=== PATIENT | female | born 1950 | race Caucasian/White ===

== ENCOUNTER 2024-02-24 14:01 | Inpatient (IN) | payer MEDICARE, OTHER ==
[~2024-02-24] VITALS: Ht 157.5 cm; Wt 82.5 kg
[2024-02-24 14:47] LABS: HEMATOCRIT 31.8 % (36.0-47.0); HEMOGLOBIN 9.9 g/dl (12.0-15.5); MEAN CORPUSCULAR HGB CONC 31.1 g/dl (32.0-36.5); MEAN CORPUSCULAR VOLUME 90.1 fl (80.0-96.0); PLATELET COUNT, AUTOMATED 263 10^3/uL (150-450); RED BLOOD COUNT 3.53 10^6/uL (4.00-5.40); WHITE BLOOD COUNT 11.3 10^3/uL (4.0-10.0)
[2024-02-24 15:09] LABS: LYMPHOCYTES 7 % (16-44); MONOCYTES 14 % (0-5); NEUTROPHILS 76 % (28-66); PLATELET ESTIMATE NORMAL (NORMAL)
[2024-02-24 15:12] LABS: ALBUMIN 2.4 G/DL (3.2-5.2); BILIRUBIN,DIRECT 0.2 MG/DL (<0.4); BILIRUBIN,TOTAL 0.4 MG/DL (0.3-1.2); CALCIUM LEVEL 8.7 MG/DL (8.3-10.6); CREATININE FOR GFR 1.05 MG/DL (0.55-1.30); GLOMERULAR FILTRATION RATE 54.8 (>39); POTASSIUM SERUM 5.3 MMOL/L (3.5-5.1); TOTAL PROTEIN 6.1 G/DL (5.7-8.2)
[2024-02-24] MEDS ORDERED: dexAMETHasone 20MG/5ML VIAL IV ONE (15:15)
[2024-02-24] MEDS: IPRATROPIUM 0.5MG/ALBUTEROL 2.5MG INH SOL UD 3ML (DUONEB) NEB SCH (15:46)
[2024-02-24] MEDS: DOXYCYCLINE HYCLATE 100MG TABLET PO ONE (18:54)
[2024-02-24] MEDS: cefTRIAXone SOD 1 GM in DEXTROSE 5% (D5W) ADV/MINI-BAG 50 ML IV ONE (18:55)
[2024-02-24] MEDS ORDERED: GLIP5TAB20 PO (21:32)
[2024-02-24] MEDS ORDERED: GNP250TA9 PO (21:32)
[2024-02-24] MEDS ORDERED: AMLO1TAB24 PO (21:32)
[2024-02-24] MEDS ORDERED: PRES10CA2 PO (21:32)
[2024-02-24] MEDS ORDERED: ROSU5TAB49 PO (21:32)
[2024-02-24] MEDS ORDERED: LOSA50TA28 PO (21:32)
[2024-02-24] MEDS ORDERED: HOME MED LIST COMPLETE! XX SCH (21:35)
[2024-02-24] MEDS ORDERED: ACETAMINOPHEN 325 MG TAB PO PRN (21:40)
[2024-02-24] MEDS ORDERED: GLUCAGON INJ 1MG VIAL SC PRN (21:40)
[2024-02-24] MEDS ORDERED: GLUCOSE 4 GM CHEW PO PRN (21:40)
[2024-02-24] MEDS ORDERED: DEXTROSE 50% 50ML SYRINGE IV PRN (21:40)
[2024-02-24] MEDS ORDERED: MOM 30ML SUSPENSION UDC PO PRN (21:40)
[2024-02-24] MEDS: LEVALBUTEROL 1.25MG 0.5ML CONCENTRATE NEB INH SCH (22:52)
[2024-02-25] MEDS: guaiFENesin ER TABLET 600 MG TAB PO SCH (00:16)
[2024-02-25] MEDS: AZITHROMYCIN 250MG TABLET PO SCH (00:16)
[2024-02-25 04:00] VITALS: BP 137/68; TEMP 97.2; O2SAT 97
[2024-02-25 05:14] LABS: BASO % 0.3 % (0.0-1.0); HEMATOCRIT 29.6 % (36.0-47.0); HEMOGLOBIN 9.2 g/dl (12.0-15.5); LYMPH # 0.5 10^3/uL (1.5-5.0); LYMPH % 4.7 % (24.0-44.0); MEAN CORPUSCULAR HEMOGLOBIN 27.6 pg (27.0-33.0); MEAN CORPUSCULAR HGB CONC 31.1 g/dl (32.0-36.5); MEAN CORPUSCULAR VOLUME 88.9 fl (80.0-96.0); MONO # 0.5 10^3/uL (0.0-0.8); MONO % 4.6 % (2.0-8.0); NEUTROPHILS # 9.4 10^3/uL (1.5-8.5); NEUTROPHILS % 84.7 % (36.0-66.0); PLATELET COUNT, AUTOMATED 255 10^3/uL (150-450); RED BLOOD COUNT 3.33 10^6/uL (4.00-5.40); WHITE BLOOD COUNT 11.1 10^3/uL (4.0-10.0)
[2024-02-25 06:01] LABS: ALBUMIN 2.3 G/DL (3.2-5.2); ALKALINE PHOSPHATASE 71 U/L (35-104); ALT/SGPT 17 U/L (7.0-40); AST/SGOT < 8 U/L (<34); BILIRUBIN,TOTAL 0.4 MG/DL (0.3-1.2); BLOOD UREA NITROGEN 48 MG/DL (9-23); CARBON DIOXIDE LEVEL 27 MMOL/L (20-31); CHLORIDE LEVEL 100 MMOL/L (98-107); CREATININE FOR GFR 1.12 MG/DL (0.55-1.30); GLOMERULAR FILTRATION RATE 50.9 (>39); GLUCOSE, FASTING 420 MG/DL (74-106); POTASSIUM SERUM 5.2 MMOL/L (3.5-5.1); SODIUM LEVEL 136 MMOL/L (136-145); TOTAL PROTEIN 5.9 G/DL (5.7-8.2)
[2024-02-25] MEDS: INSULIN LISPRO (NovoLOG) PER UNIT SC SCH ×2 (06:32→20:43)
[2024-02-25] MEDS: IPRATROPIUM 0.5MG/ALBUTEROL 2.5MG INH SOL UD 3ML (DUONEB) NEB SCH (08:54)
[2024-02-25] MEDS: ENOXAPARIN 40MG/0.4ML SYRINGE (J1650 PER 10MG) SC SCH (09:35)
[2024-02-25] MEDS: ROSUVASTATIN 10 MG TAB (CRESTOR) PO SCH (09:39)
[2024-02-25] MEDS: LOSARTAN 50MG TABLET PO SCH (09:40)
[2024-02-25] MEDS: amLODIPine 5 MG TAB PO SCH (09:41)
[2024-02-25] MEDS ORDERED: PILL CUTTER 1 EACH XX ONE (09:43)
[2024-02-25] MEDS: DOXYCYCLINE HYCLATE 100MG TABLET PO SCH (09:46)
[2024-02-25 12:00] VITALS: BP 158/51; TEMP 97.9; O2SAT 94
[2024-02-25 12:15] LABS: AMORPHOUS SEDIMENT SMALL (NEGATIVE); APPEARANCE, URINE HAZY (CLEAR); BACTERIA, URINE AUTO 1+ (NEGATIVE); BILIRUBIN, URINE AUTO NEGATIVE (NEGATIVE); BLOOD, URINE BLOOD NEGATIVE (NEGATIVE); COLOR, URINE YELLOW (YELLOW); GLUCOSE, URINE (UA) AUTO 1+ mg/dL (NEGATIVE); GRANULAR CAST, URINE AUTO 1 /LPF; KETONE, URINE AUTO NEGATIVE (NEGATIVE); LEUKOCYTE ESTERASE, URINE AUTO NEGATIVE (NEGATIVE); MUCUS, URINE SMALL (NEGATIVE); NITRITE, URINE AUTO NEGATIVE (NEGATIVE); PROTEIN, URINE AUTO 1+ mg/dL (NEGATIVE); RBC, URINE AUTO 1 /HPF (0-3); SPECIFIC GRAVITY URINE AUTO 1.011 (1.002-1.035); SQUAMOUS EPITHELIAL CELL UR AU 0 /HPF (0-6); UROBILINOGEN, URINE AUTO 0.2 mg/dL (0.0-2.0); WBC, URINE AUTO 7 /HPF (0-3)
[2024-02-25 14:47] LABS: CALCIUM LEVEL 9.3 MG/DL (8.3-10.6); CREATININE FOR GFR 1.13 MG/DL (0.55-1.30); GLOMERULAR FILTRATION RATE 50.4 (>39); POTASSIUM SERUM 4.7 MMOL/L (3.5-5.1)
[2024-02-25 14:48] LABS: PERCENT SATURATION 16.6 % (13.2-45.0)
[2024-02-25] MEDS: cefTRIAXone SOD 1 GM in DEXTROSE 5% (D5W) ADV/MINI-BAG 50 ML IV SCH (17:14)
[2024-02-25 20:28] VITALS: BP 129/50; TEMP 97.9; O2SAT 94
[2024-02-25 23:01] VITALS: O2SAT 93
[2024-02-26] VITALS (9 sets, daily range): BP systolic 120–144; BP diastolic 52–67; TEMP 97–97.7; O2SAT 88–95
[2024-02-26 10:29] LABS: BASO % 0.2 % (0.0-1.0); EOS # 0.1 10^3/uL (0.0-0.5); EOS % 0.6 % (0.0-3.0); HEMATOCRIT 31.4 % (36.0-47.0); HEMOGLOBIN 9.6 g/dl (12.0-15.5); LYMPH # 1.3 10^3/uL (1.5-5.0); LYMPH % 9.6 % (24.0-44.0); MEAN CORPUSCULAR HEMOGLOBIN 28.1 pg (27.0-33.0); MEAN CORPUSCULAR HGB CONC 30.6 g/dl (32.0-36.5); MEAN CORPUSCULAR VOLUME 91.8 fl (80.0-96.0); MONO # 0.6 10^3/uL (0.0-0.8); MONO % 4.3 % (2.0-8.0); NEUTROPHILS # 10.6 10^3/uL (1.5-8.5); NEUTROPHILS % 80.4 % (36.0-66.0); PLATELET COUNT, AUTOMATED 270 10^3/uL (150-450); RED BLOOD COUNT 3.42 10^6/uL (4.00-5.40); WHITE BLOOD COUNT 13.1 10^3/uL (4.0-10.0)
[2024-02-26 11:10] LABS: CALCIUM LEVEL 8.9 MG/DL (8.3-10.6); CREATININE FOR GFR 1.33 MG/DL (0.55-1.30); GLOMERULAR FILTRATION RATE 41.7 (>39); POTASSIUM SERUM 5.4 MMOL/L (3.5-5.1)
[2024-02-27 04:00] VITALS: BP 122/51; TEMP 97.3; O2SAT 95
[2024-02-27 06:07] LABS: HEMATOCRIT 29.7 % (36.0-47.0); MEAN CORPUSCULAR HEMOGLOBIN 28.1 pg (27.0-33.0); MEAN CORPUSCULAR HGB CONC 30.3 g/dl (32.0-36.5); MEAN CORPUSCULAR VOLUME 92.8 fl (80.0-96.0); PLATELET COUNT, AUTOMATED 225 10^3/uL (150-450); WHITE BLOOD COUNT 11.5 10^3/uL (4.0-10.0)
[2024-02-27 06:33] LABS: CALCIUM LEVEL 8.7 MG/DL (8.3-10.6); CREATININE FOR GFR 1.23 MG/DL (0.55-1.30); GLOMERULAR FILTRATION RATE 45.7 (>39); POTASSIUM SERUM 5.2 MMOL/L (3.5-5.1)
[2024-02-27 07:54] VITALS: O2SAT 94
[2024-02-27] MEDS: LEVEMIR (INSULIN DETEMIR) 1 UNITS/0.01ML SC SCH (08:44)
[2024-02-27 08:47] VITALS: BP 143/81
[2024-02-27 09:16] LABS: PROCALCITONIN 0.14 ng/ml
[2024-02-27] MEDS: glipiZIDE (GLUCOTROL) 5 MG TAB PO SCH (09:32)
[2024-02-27 09:45] LABS: FOLATE 11.22 NG/ML (>5.4)
[2024-02-27 09:48] LABS: HEMOGLOBIN A1c 6.8 % (4.0-6.0)
[2024-02-27] MEDS: FUROSEMIDE 40MG/4ML VIAL IV SCH (10:31)
[2024-02-27] MEDS: LEVEMIR (INSULIN DETEMIR) 1 UNITS/0.01ML SC ONE (10:31)
[2024-02-27] MEDS: ALBUTEROL 90 MCG/ACT 8GM HFA INHALER INH ONE (11:32)
[2024-02-27 12:00] VITALS: BP 133/80; TEMP 96.8; O2SAT 93
[2024-02-27] MEDS ORDERED: VENTAER INH (12:49)
[2024-02-27] MEDS ORDERED: PRED20TA PO (12:49)
[2024-02-27] MEDS ORDERED: AMOX875T2 PO (12:49)
[2024-02-27] MEDS ORDERED: MUCI600T31 PO (12:49)
[2024-02-27] MEDS ORDERED: ALBUTEROL 90 MCG/ACT 8GM HFA INHALER INH PRN (13:00)
[2024-02-28] MEDS ORDERED: LEVEMIR (INSULIN DETEMIR) 1 UNITS/0.01ML SC SCH (09:00)
[2024-02-29 19:12] LABS: URINE STREP PNEUMONIAE ANTIGEN DETECTED (NOT DETECT)
== END 2024-02-27 15:20 | disposition home or self-care (01) | DRG 871 ==
LOC: M ED 14:01 → EDBD 14:01 → M ED INP 21:36 → M MSPAV 02-25 03:07
PROVIDERS: ADMIT Student in an Organized Health Care Education/Training Program; ATTEND Internal Medicine Nephrology
DX: A41.9 Sepsis, unspecified organism (principal); J18.9 Pneumonia, unspecified organism; E11.9 Type 2 diabetes mellitus without complications; I10 Essential (primary) hypertension; J40 Bronchitis, not specified as acute or chronic; D64.9 Anemia, unspecified; E78.5 Hyperlipidemia, unspecified; Z90.49 Acquired absence of other specified parts of digestive tract; Z98.41 Cataract extraction status, right eye; Z98.42 Cataract extraction status, left eye; Z87.891 Personal history of nicotine dependence; Z79.84 Long term (current) use of oral hypoglycemic drugs; Z79.899 Other long term (current) drug therapy; Z20.822 Contact with and (suspected) exposure to COVID-19